=== PATIENT | female | born 1975 | race Caucasian/White ===

== ENCOUNTER → 2018-04-14 | Emergency (ER) | payer OTHER ==
[~2018-04-14] VITALS: Ht 165.1 cm; Wt 134.3 kg
[~2018-04-14] MED LIST: APRESOLINE 10MG10 MG; APRESOLINE 10MG10 MG PO; HYDRALAZINE HC100 MG; JENTADUETO 2.51 EAC2; PRENATABS RX T1 EACH PO; PRENATAL + DHA1 EAC1; VERAPAMIL ER120 MG PO; VERAPAMIL SR120 MG
== END | disposition still patient (30) ==
LOC: ER 20:22
DX: Z34.82 Encounter for supervision of other normal pregnancy, second trimester (principal)

== ENCOUNTER 2018-04-15 01:50 | Outpatient (CLI) | payer OTHER ==
[~2018-04-15 01:50] MED LIST changes: -APRESOLINE 10MG10 MG; -APRESOLINE 10MG10 MG PO; -PRENATABS RX T1 EACH PO; -VERAPAMIL ER120 MG PO
[2018-04-15] MEDS ORDERED: PRENATABS RX T1 EACH PO (03:27)
[2018-04-15] MEDS ORDERED: VERAPAMIL ER120 MG PO (03:27)
[2018-04-15] MEDS ORDERED: APRESOLINE 10MG10 MG (03:28)
[2018-04-15] MEDS ORDERED: APRESOLINE 10MG10 MG PO (03:29)
== END 2018-04-15 16:20 | disposition home or self-care (01) ==
LOC: OBS/DEL 01:50
DX: O13.2 Gestational [pregnancy-induced] hypertension without significant proteinuria, second trimester (principal); O99.012 Anemia complicating pregnancy, second trimester; Z34.82 Encounter for supervision of other normal pregnancy, second trimester

== ENCOUNTER 2018-07-20 23:48 | Outpatient (CLI) | payer OTHER | END 2018-07-21 14:54 | disposition home or self-care (01) | LOC: OBS/DEL 23:48 | DX: O24.414 Gestational diabetes mellitus in pregnancy, insulin controlled (principal); Z34.83 Encounter for supervision of other normal pregnancy, third trimester; O99.013 Anemia complicating pregnancy, third trimester; D64.89 Other specified anemias; O16.3 Unspecified maternal hypertension, third trimester ==

== ENCOUNTER → 2018-07-20 | Emergency (ER) | payer OTHER ==
[~2018-07-20] VITALS: Ht 165.1 cm; Wt 132.9 kg
[~2018-07-20] MED LIST changes: +APRESOLINE 10MG10 MG; +APRESOLINE 10MG10 MG PO; +HUMULIN N100 UNIT/2 SQ; +HUMULIN R500 UNIT/2 SQ; +PRENATABS RX T1 EACH PO; +VERAPAMIL ER120 MG PO
== END | disposition still patient (30) ==
LOC: ER 21:41 → OB/ER 21:42
DX: O24.414 Gestational diabetes mellitus in pregnancy, insulin controlled (principal); Z34.83 Encounter for supervision of other normal pregnancy, third trimester; O99.013 Anemia complicating pregnancy, third trimester; D64.89 Other specified anemias

== ENCOUNTER 2018-08-04 06:28 | Inpatient (IN) | payer OTHER ==
[~2018-08-04] VITALS: Ht 165.1 cm; Wt 2.3 kg
[~2018-08-04 06:28] MED LIST changes: -ADALAT CC30 MG PO; -ALDOMET500 MG PO; -FUSION PLUS CA1 EACH PO; -HUMULIN N100 UNIT/2 SUBCUTANEO; -HUMULIN R500 UNIT/2 SUBCUTANEO; -INTEGRA PLUS C1 EACH PO; -SYNTHROID50 MCG PO
[2018-08-04] MEDS ORDERED: SYNTHROID50 MCG PO (07:37)
[2018-08-04] MEDS ORDERED: FUSION PLUS CA1 EACH PO (07:38)
[2018-08-04] MEDS ORDERED: ADALAT CC30 MG PO (07:39)
[2018-08-04] MEDS ORDERED: ALDOMET500 MG PO (07:41)
[2018-08-04] MEDS ORDERED: HUMULIN N100 UNIT/2 SUBCUTANEO (07:43)
[2018-08-04] MEDS ORDERED: HUMULIN R500 UNIT/2 SUBCUTANEO (07:47)
[2018-08-06] MEDS ORDERED: INTEGRA PLUS C1 EACH PO (11:03)
== END 2018-08-07 19:28 | disposition home or self-care (01) | DRG 783 ==
LOC: OBS/DEL 06:28 → LDR 10:30 → OBS/DEL 10:30 → LDR 08-07 19:28
PROVIDERS: ADMIT Specialist
PROC: BY4FZZZ Ultrasonography of Third Trimester, Single Fetus (ICD-10-PCS; 2018-08-04)
PROC: B246ZZZ Ultrasonography of Right and Left Heart (ICD-10-PCS; 2018-08-04)
PROC: 4A1HXCZ Monitoring of Products of Conception, Cardiac Rate, External Approach (ICD-10-PCS; 2018-08-04)
PROC: 10D00Z1 Extraction of Products of Conception, Low, Open Approach (ICD-10-PCS; principal; 2018-08-05)
PROC: 0UB70ZZ Excision of Bilateral Fallopian Tubes, Open Approach (ICD-10-PCS; 2018-08-05)
DX: O24.414 Gestational diabetes mellitus in pregnancy, insulin controlled (principal); O11.3 Pre-existing hypertension with pre-eclampsia, third trimester; O34.211 Maternal care for low transverse scar from previous cesarean delivery; O75.82 Onset (spontaneous) of labor after 37 completed weeks of gestation but before 39 completed weeks gestation, with delivery by (planned) cesarean section; Z3A.37 37 weeks gestation of pregnancy; Z37.0 Single live birth; Z30.2 Encounter for sterilization; Z79.4 Long term (current) use of insulin

== ENCOUNTER → 2018-08-04 | Outpatient (CLI) | payer OTHER ==
[~2018-08-04] MED LIST changes: +ADALAT CC30 MG PO; +ALDOMET500 MG PO; +FUSION PLUS CA1 EACH PO; +HUMULIN N100 UNIT/2 SUBCUTANEO; +HUMULIN R500 UNIT/2 SUBCUTANEO; +INTEGRA PLUS C1 EACH PO; +SYNTHROID50 MCG PO
== END | disposition still patient (30) ==
LOC: OBS/DEL 13:08
DX: O34.211 Maternal care for low transverse scar from previous cesarean delivery (principal); O60.03 Preterm labor without delivery, third trimester; Z34.83 Encounter for supervision of other normal pregnancy, third trimester